=== PATIENT | female | born 1945 | race Caucasian/White ===

== ENCOUNTER → 2020-11-22 | Outpatient (CLI) | payer MEDICARE ==
[~2020-11-22] MED LIST: ALLOPURINOL100 MG PO; CARDIZEM CD180 MG PO; CETIRIZINE HCL10 MG PO; ELIQUIS 5 MG TAB5 MG PO; ELIQUIS5 M1 PO; GLUCOPHAGE500 MG PO; HYDROCODON-ACE1 EAC6 PO; IRON325 M1 PO; ISOSORBIDE MONO30 MG PO; JANUVIA 100 MG100 MG PO; JANUVIA100 MG PO; LASIX20 MG PO; LIPITOR40 MG PO; LOPRESSOR 25 MG25 MG PO; LOPRESSOR50 MG PO; NEURONTIN 300300 MG PO; NORVASC10 MG PO; PLAVIX 75 MG TA75 MG PO; PREDNISONE20 MG PO; PRINIVIL5 MG PO; PROAIR HFA8.5 GM INH; PROTONIX40 MG PO; RANEXA1000 MG PO; REQUIP0.25 MG PO; SEROQUEL50 MG PO; TENORMIN 25 MG25 MG PO; VITAMIN D3125 MCG PO; ZANTAC 150 MG150 MG PO; ZANTAC150 MG PO; ZYLOPRIM 100 M100 MG PO; ZYRTEC10 M3 PO
== END ==
LOC: KOH-I 16:36
DX: R06.00 Dyspnea, unspecified (principal)
CPT/HCPCS: 71046

== ENCOUNTER 2021-02-24 11:51 | Inpatient (IN) | payer MEDICARE ==
[~2021-02-24] VITALS: Ht 149.9 cm; Wt 90.7 kg
[~2021-02-24 11:51] MED LIST changes: -GLUCOPHAGE500 MG PO; -HYDROCODON-ACE1 EAC6 PO; -IRON325 M1 PO; -ISOSORBIDE MONO30 MG PO; -LOPRESSOR 25 MG25 MG PO; -PROTONIX40 MG PO; -VITAMIN D3125 MCG PO
[2021-02-24 13:57] LABS: HEMOGLOBIN 13.3 gm/dl (12.3-15.3); RED BLOOD COUNT 4.43 M/UL (4.00-5.10); WHITE BLOOD COUNT 8.8 K/UL (4.5-11.0)
[2021-02-24 14:30] LABS: BUN/CREATININE RATIO 16 (0-10)
[2021-02-24] MEDS ORDERED: VITAMIN D3125 MCG PO (16:20)
[2021-02-24] MEDS ORDERED: HYDROCODON-ACE1 EAC6 PO (16:21)
[2021-02-24] MEDS ORDERED: LIPITOR40 MG PO (17:10)
[2021-02-24] MEDS ORDERED: ISOSORBIDE MONO30 MG PO (17:10)
[2021-02-24] MEDS ORDERED: IRON325 M1 PO (17:11)
[2021-02-25 03:10] LABS: HEMOGLOBIN 12.6 gm/dl (12.3-15.3); RED BLOOD COUNT 4.28 M/UL (4.00-5.10); WHITE BLOOD COUNT 9.4 K/UL (4.5-11.0)
[2021-02-26 04:35] LABS: HEMOGLOBIN 10.8 gm/dl (12.3-15.3)
[2021-02-26 04:44] LABS: RED BLOOD COUNT 3.75 M/UL (4.00-5.10); WHITE BLOOD COUNT 5.7 K/UL (4.5-11.0)
[2021-02-27 05:27] LABS: HEMOGLOBIN 10.8 gm/dl (12.3-15.3); RED BLOOD COUNT 3.67 M/UL (4.00-5.10)
[2021-02-28 05:09] LABS: HEMOGLOBIN 10.7 gm/dl (12.3-15.3); RED BLOOD COUNT 3.63 M/UL (4.00-5.10); WHITE BLOOD COUNT 6.2 K/UL (4.5-11.0)
[2021-02-28] MEDS ORDERED: PROTONIX40 MG PO (08:34)
[2021-02-28] MEDS ORDERED: GLUCOPHAGE500 MG PO (08:34)
[2021-02-28] MEDS ORDERED: LOPRESSOR 25 MG25 MG PO (08:34)
== END 2021-02-28 14:55 | disposition home or self-care (01) | DRG 439 ==
LOC: ER1 11:51 → CDU 16:03 → M/S 16:03 → PROG CARE 02-28 00:42
PROVIDERS: Physician Assistant; Physician Assistant Medical; ADMIT Internal Medicine
DX: K85.90 Acute pancreatitis without necrosis or infection, unspecified (principal); I13.0 Hypertensive heart and chronic kidney disease with heart failure and stage 1 through stage 4 chronic kidney disease, or unspecified chronic kidney disease; N30.00 Acute cystitis without hematuria; I25.811 Atherosclerosis of native coronary artery of transplanted heart without angina pectoris; K57.92 Diverticulitis of intestine, part unspecified, without perforation or abscess without bleeding; Z68.41 Body mass index [BMI] 40.0-44.9, adult; E66.9 Obesity, unspecified; K44.9 Diaphragmatic hernia without obstruction or gangrene; E11.22 Type 2 diabetes mellitus with diabetic chronic kidney disease; M10.9 Gout, unspecified; Z20.822 Contact with and (suspected) exposure to COVID-19; I50.9 Heart failure, unspecified; N18.30 Chronic kidney disease, stage 3 unspecified; E78.5 Hyperlipidemia, unspecified; Z90.49 Acquired absence of other specified parts of digestive tract; Z90.710 Acquired absence of both cervix and uterus; Z88.6 Allergy status to analgesic agent; Z91.041 Radiographic dye allergy status; Z82.49 Family history of ischemic heart disease and other diseases of the circulatory system; Z83.3 Family history of diabetes mellitus
CPT/HCPCS: 36415; 74181; 80053; 80061; 81001; 82550; 82553; 82962; 83036; 83690; 84484; 85025; 86140; 86301; 87077; 87086; 93005; 96374; 96375; 96376; 99285; C9113; G0378; J0696; J1170; J1885; J2270; J2405; J7030; U0002

== ENCOUNTER → 2021-04-01 | Outpatient (CLI) | payer MEDICARE, OTHER ==
[~2021-04-01] MED LIST changes: +GLUCOPHAGE500 MG PO; +HYDROCODON-ACE1 EAC6 PO; +IRON325 M1 PO; +ISOSORBIDE MONO30 MG PO; +LOPRESSOR 25 MG25 MG PO; +PROTONIX40 MG PO; +VITAMIN D3125 MCG PO
== END ==
LOC: ECHO 03-10 11:00
DX: R06.02 Shortness of breath (principal); I08.1 Rheumatic disorders of both mitral and tricuspid valves
CPT/HCPCS: ECHO; 93306

== ENCOUNTER → 2021-06-23 | Outpatient (CLI) | payer MEDICARE | LOC: KOH-I 13:51 | DX: M54.2 Cervicalgia (principal); M47.812 Spondylosis without myelopathy or radiculopathy, cervical region | CPT/HCPCS: 72040; 73030; 73060 ==

== ENCOUNTER → 2021-08-22 | Outpatient (CLI) | payer MEDICARE | LOC: KOH-I 14:21 | DX: M54.2 Cervicalgia (principal) | CPT/HCPCS: 72020 ==

== ENCOUNTER 2021-08-27 10:00 | Emergency (ER) | payer MEDICARE ==
[2021-08-27 11:39] LABS: HEMOGLOBIN 14.1 gm/dl (12.3-15.3); RED BLOOD COUNT 4.65 M/UL (4.00-5.10); WHITE BLOOD COUNT 13.6 K/UL (4.5-11.0)
[2021-08-27 15:52] LABS: HEMOGLOBIN 12.2 gm/dl (12.3-15.3)
== END 2021-08-27 20:43 | disposition short-term general hospital (02) ==
LOC: ER1 10:00
PROVIDERS: Physician Assistant
DX: K85.90 Acute pancreatitis without necrosis or infection, unspecified (principal); K92.0 Hematemesis; E11.65 Type 2 diabetes mellitus with hyperglycemia; I13.0 Hypertensive heart and chronic kidney disease with heart failure and stage 1 through stage 4 chronic kidney disease, or unspecified chronic kidney disease; I50.9 Heart failure, unspecified; N18.30 Chronic kidney disease, stage 3 unspecified; E11.22 Type 2 diabetes mellitus with diabetic chronic kidney disease; Z90.49 Acquired absence of other specified parts of digestive tract; Z90.711 Acquired absence of uterus with remaining cervical stump; Z88.5 Allergy status to narcotic agent
CPT/HCPCS: 80053; 81001; 82962; 83690; 85014; 85018; 85025; 96374; 96375; 96376; 99285; C9113; J2270; J2405

== ENCOUNTER → 2022-04-13 | Outpatient (CLI) | payer MEDICARE | LOC: KOH-I 13:58 | DX: M54.50 Low back pain, unspecified (principal); M51.36 Other intervertebral disc degeneration, lumbar region; M50.322 Other cervical disc degeneration at C5-C6 level | CPT/HCPCS: 72040; 72100 ==